=== PATIENT | female | born 1980 | race Hispanic/Latino ===

== ENCOUNTER 2017-07-10 15:09 | Emergency (ER) | payer SELFPAY ==
[2017-07-10] MEDS ORDERED: diphenhydrAMINE 50 MG/ML VIAL ONE (16:24)
[2017-07-10] MEDS ORDERED: Ketorolac Tromethamine 30 MG/ML VIAL ONE (16:24)
[2017-07-10] MEDS ORDERED: Metoclopramide HCl 10 MG/2 ML VIAL ONE (16:24)
--- NOTE | 2017-07-10 16:59 | CT ---
FACIAL BONE CT WITHOUT CONTRAST 07/10/17 HISTORY: Facial pain and headache. COMPARISON: None. TECHNIQUE: Maxillofacial CT is performed in the axial plane without contrast. Reformatted images are submitted f or interpretation. FINDINGS: The visualized brain parenchyma is unremarkable. Bilateral ocular lenses are appropriately located. B oth globes are intact. Retrobulbar fat is preserved. Symmetric attenuation of the optic nerves and oc ular rectus muscles. Adequate aeration of the visualized paranasal sinuses and mastoid air cells. The mandible and maxilla are intact. No fracture. No significant periodontal disease. The visualized upper cervical spine is unremarkable. The left and right zygomatic arches are intact. Pterygoid plates are intact. Nasal septum is midline. Bilaterally, osteomeatal complexes are patent. Valarie bullosa in the right superior turbinate is not ed. With regard to the facial soft tissue structures, there is no evidence of induration or swelling. No obvious abscess. The visualized parotid and submandibular glands as well as the sternocleidomastoid m uscle are unremarkable. The visualized aerodigestive tract is patent. The midline fatty raphae appears to be preserved. However, there appears to be some asymmetric soft t issue attenuation in the left aspect of the tongue/oral cavity. There is also effacement of the aerod igestive tract with asymmetric mucosal prominence in the left tongue base. Correlate clinically for p ossible mucosal based pathology. Direct visualization and examination of the oral cavity is recommend ed. IMPRESSION: Possible left oral cavity and left tongue base mass. Directed visualization is recommended. POS: [facility]
== END 2017-07-10 17:55 | disposition home or self-care (01) ==
LOC: ERS 15:09
DX: S00.83XA Contusion of other part of head, initial encounter (principal); R51 Headache; K58.9 Irritable bowel syndrome, unspecified; F90.9 Attention-deficit hyperactivity disorder, unspecified type; W22.8XXA Striking against or struck by other objects, initial encounter
CPT/HCPCS: 70486; 96361; 96374; 96375; J1200; J1885; J2765

== ENCOUNTER 2017-09-27 12:20 | Emergency (ER) | payer SELFPAY ==
--- NOTE | 2017-09-27 13:47 | RAD ---
RIGHT KNEE 4 VIEWS: Date: 09/27/17 HISTORY: Right knee injury. FINDINGS: Joint spaces are preserved. Mild osteophytosis. No acute fracture or dislocation. Fluid distends the suprapatellar bursa on the lateral view. IMPRESSION: Joint fluid may reflect internal derangement or mild degenerative changes. No acute osseous abnormali ties are demonstrated. POS: [facility]
== END 2017-09-27 13:55 | disposition home or self-care (01) ==
LOC: ERS 12:20
DX: S83.511A Sprain of anterior cruciate ligament of right knee, initial encounter (principal); F90.9 Attention-deficit hyperactivity disorder, unspecified type; W17.2XXA Fall into hole, initial encounter

== ENCOUNTER 2018-01-19 14:56 | Emergency (ER) | payer SELFPAY ==
[2018-01-19 15:40] LABS: Hemoglobin 15.9 g/dL (12.0-16.0); Mean Corpuscular HGB CONC 34.5 g/dL (32.0-36.0); Mean Corpuscular Volume 92.7 fL (78.0-98.0); Platelet Count 275 thou/uL (130-400); RBC Distribution Width 11.5 % (11.5-14.5); Red Blood Cell (RBC) Count 4.96 mill/uL (4.20-5.40); White Blood Cell (WBC) Count 11.7 thou/uL (4.8-10.8)
[2018-01-19 15:50] LABS: Bilirubin Negative (Negative); Blood, Urine Negative (Negative); Clarity CLEAR (Clear); Glucose, Urine (Dipstick) Negative (Negative); Leukocyte Negative (Negative); Nitrite Negative (Negative); Protein, Urine (Dipstick) Negative (Neg-Trace); Specific Gravity, Urine 1.031 (1.002-1.036); Urobilinogen 0.2 mg/dL (0.2-1.0)
[2018-01-19 16:01] LABS: Band 10 % (5-11); Lymphocytes 4 % (21-51); MDiff Complete? YES; Monocytes 1 % (0-10); Neutrophil 84 % (42-75); PLT Morphology Comment Appears Adequate; RBC Morphology Normal; Reactive Lymphocytes 1 % (0-10)
[2018-01-19 16:05] LABS: ALT (SGPT) 28 U/L (8-55); AST (SGOT) 29 U/L (5-34); Albumin 4.1 g/dL (3.5-5.0); Alkaline Phosphatase 77 U/L (40-150); Anion Gap 11 mmol/L (10-20); BUN (Urea Nitrogen) 11 mg/dL (7.0-18.7); Bilirubin, Total 0.6 mg/dL (0.2-1.2); Calc. Creatinine Clearance 0 mL/min (70-130); Calcium 8.5 mg/dL (7.8-10.44); Carbon Dioxide 23 mmol/L (22-29); Chloride 102 mmol/L (98-107); Estimated GFR-MDRD Greater than 90; Globulin 3.4 g/dL (2.4-3.5); Glucose 98 mg/dL (70-105); Potassium 3.9 mmol/L (3.5-5.1); Protein, Total 7.5 g/dL (6.0-8.3); Sodium 132 mmol/L (136-145)
[2018-01-19] MEDS ORDERED: Ondansetron HCl/PF 4 MG/2 ML Vial ONE (17:07)
[2018-01-19 17:24] LABS: Pregnancy Test - Urine (BHCG) Negative (Negative); Pregu Control Background? CLEAR/WHITE (CLR/WHITE); Pregu Control Bar Appear? YES (CONTROL BAR); Specific Gravity 1.031 (1.002-1.036)
--- NOTE | 2018-01-19 18:07 | CT ---
CT ABDOMEN AND PELVIS WITH IV CONTRAST 01/19/18 HISTORY: Abdominal pain. Nausea and vomiting. COMPARISON: 08/01/12. FINDINGS: The lung bases are clear. Gallbladder is surgically absent. The liver, spleen, kidneys, adrenal gland s and pancreas are unremarkable. No enlarged lymph nodes or free fluid. Urinary bladder is decompress ed. The uterus is not visualized. Degenerative changes lumbar spine. Lack of oral contrast limits evaluation of the bowel. No evidence of obstruction or inflammation. IMPRESSION: Postoperative changes. No acute abnormalities are demonstrated. POS: [facility]
== END 2018-01-19 19:57 | disposition home or self-care (01) ==
LOC: ERS 14:56
DX: N76.0 Acute vaginitis (principal); F90.9 Attention-deficit hyperactivity disorder, unspecified type; Z79.899 Other long term (current) drug therapy
CPT/HCPCS: 36415; 74177; 80053; 81003; 81025; 85025; 96374; 96375; 96376; J2270; J2405

== ENCOUNTER 2019-05-27 12:05 | Outpatient (CLI) | payer MEDICAID ==
--- NOTE | 2019-05-27 13:51 | MMO ---
Bilateral MAMMO Bilat Screen [facility]. CLINICAL HISTORY: Patient is 39 years old and is seen for screening. The patient has the following family history of breast cancer: grandmother. The patient has no personal history of cancer. VIEWS: The views performed were: bilateral craniocaudal and bilateral mediolateral oblique. This study has been interpreted with the assistance of computer-aided detection. MAMMOGRAM FINDINGS: There are scattered fibroglandular densities. There are benign appearing calcifications seen in the left breast. There are no suspicious masses, suspicious calcifications, or new areas of architectural distortion. IMPRESSION: THERE IS NO MAMMOGRAPHIC EVIDENCE OF MALIGNANCY. A ROUTINE FOLLOW-UP MAMMOGRAM IN 1 YEAR IS RECOMMENDED. ACR BI-RADS Category 2 - Benign finding MAMMOGRAPHY NOTE: 1. A negative mammogram report should not delay a biopsy if a dominant of clinically suspicious mass is present. 2. Approximately 10% to 15% of breast cancers are not detected by mammography. 3. Adenosis and dense breasts may obscure an underlying neoplasm. Reported by: MICHELE RUSS MD Electonically Signed: [id number]
== END 2019-05-27 12:06 | disposition home or self-care (01) ==
LOC: BICMAMMO 12:05
PROVIDERS: ATTEND Nurse Practitioner Women's Health
DX: Z12.31 Encounter for screening mammogram for malignant neoplasm of breast (principal); Z80.3 Family history of malignant neoplasm of breast
CPT/HCPCS: 77067

== ENCOUNTER 2021-04-21 16:35 | Emergency (ER) | payer MEDICAID ==
[2021-04-21] MEDS ORDERED: Azithromycin 250 MG TAB ONE (17:39)
[2021-04-21] MEDS ORDERED: Lidocaine 1% PF 5 ML VIAL ONE (17:39)
[2021-04-21] MEDS ORDERED: cefTRIAXone\\ROCEPHIN 500 MG VIAL ONE (17:39)
[2021-04-23 04:58] LABS: Chlamydia by PCR Not Detected (NotDetected); GC by PCR Not Detected (NotDetected)
== END 2021-04-21 18:08 | disposition home or self-care (01) ==
LOC: ERS 16:35
DX: N72 Inflammatory disease of cervix uteri (principal)
CPT/HCPCS: 87480; 87491; 87510; 87591; 87660; 96372; 99284; J0696

== ENCOUNTER 2022-07-29 08:41 | Emergency (ER) | payer SELFPAY ==
[2022-07-29 10:09] LABS: SARS-CoV-2 NAA Rapid Test Not Detected (NotDetected)
[2022-07-29] MEDS ORDERED: predniSONE 20 MG TAB ONE (10:40)
[2022-07-29] MEDS ORDERED: Ipratropium/Albuterol 3 ML NEB ONE (10:40)
== END 2022-07-29 11:37 | disposition home or self-care (01) ==
LOC: ERS 08:41
DX: J01.90 Acute sinusitis, unspecified (principal); J00 Acute nasopharyngitis [common cold]; Z20.822 Contact with and (suspected) exposure to COVID-19
CPT/HCPCS: 71045; 87081; 87430; J7512; J7620

== ENCOUNTER 2024-02-20 08:11 | Emergency (ER) | payer SELFPAY ==
[2024-02-20 09:12] LABS: #Basophils 0.06 10x3/uL (0.0-0.2); %Basophils 0.8 % (0.0-1.0); %Eosinophils 1.5 % (0.0-10.0); %Lymphocytes 33.3 % (21.0-51.0); %Monocytes 5.7 % (0.0-10.0); %Neutrophils 58.3 % (42.0-75.0); Hematocrit 43.4 % (36.0-47.0); Hemoglobin 14.3 g/dL (12.0-16.0); Mean Corpuscular HGB CONC 32.9 g/dL (32.0-36.0); Mean Corpuscular Hemoglobin 31.6 pg (27.0-31.0); Mean Platelet Volume 9.3 fL (7.4-10.4); Platelet Count 321 10x3/uL (130-400); RBC Distribution Width 12.3 % (11.5-14.5); Red Blood Cell (RBC) Count 4.52 mill/uL (4.20-5.40)
[2024-02-20 09:33] LABS: ALT (SGPT) 16 U/L (8-55); AST (SGOT) 19 U/L (5-34); Albumin 3.4 g/dL (3.5-5.0); Alkaline Phosphatase 65 U/L (40-110); Anion Gap 10 mmol/L (10-20); BUN (Urea Nitrogen) 12 mg/dL (7.0-18.7); Bilirubin, Total 0.4 mg/dL (0.2-1.2); Calc. Creatinine Clearance 0 mL/min (70-130); Calcium 8.7 mg/dL (7.8-10.44); Carbon Dioxide 25 mmol/L (22-29); Chloride 111 mmol/L (98-107); Estimated GFR 110; Globulin 2.6 g/dL (2.4-3.5); Glucose 106 mg/dL (70-105); Sodium 142 mmol/L (136-145)
[2024-02-20 09:47] LABS: HIV (1/2) Antibody/Antigen NONREACTIVE (NonReactive); HIV 1/2 INDEX 0.05 S/CO (<1.00)
[2024-02-21 05:14] LABS: Chlamydia by PCR, Vaginal Swab Not Detected (NotDetected); GC by PCR, Vaginal Swab Not Detected (NotDetected)
[2024-02-21 11:39] LABS: Syphilis Antibody Nonreactive (Nonreactive); Syphilis Antibody Index 0.04 S/CO (<1.00 Non-Reactive)
== END 2024-02-20 09:35 | disposition home or self-care (01) ==
LOC: ERS 08:11
DX: J06.9 Acute upper respiratory infection, unspecified (principal); B97.89 Other viral agents as the cause of diseases classified elsewhere; F90.9 Attention-deficit hyperactivity disorder, unspecified type; Z20.2 Contact with and (suspected) exposure to infections with a predominantly sexual mode of transmission
CPT/HCPCS: 36415; 80053; 85025; 86780; 87081; 87389; 87430; 87480; 87491; 87510; 87591; 87660; 99283